=== PATIENT | female | born 2005 | race Caucasian/White ===

== ENCOUNTER 2024-10-28 14:24 | Outpatient (CLI) | payer OTHER, SELFPAY ==
[2024-10-28 16:59] LABS: Hepatitis B Surface Antibody* Positive (Negative)
== END 2024-10-28 14:25 | disposition home or self-care (01) ==
LOC: LAB 14:35
PROVIDERS: PCP Family Medicine; Visit Provider Preventive Medicine Occupational Medicine
DX: Z11.59 Encounter for screening for other viral diseases (principal)
CPT/HCPCS: 36415; 86706; 87341